=== PATIENT | male | born 1990 | race Caucasian/White ===

== ENCOUNTER 2019-08-20 07:39 | Emergency (ER) | payer BC ==
[~2019-08-20] VITALS: Ht 180.3 cm; Wt 98.9 kg
[2019-08-20] MEDS ORDERED: COUMADIN 5 MG TA5 M1 PO (07:45)
[2019-08-20 08:26] LABS: ABSOLUTE NEUTROPHILS 2.9 thou/uL (1.4-8.2); BASOPHILS 0.7 % (0.0-2.0); HEMATOCRIT 43.3 % (42.0-52.0); HEMOGLOBIN 14.6 gm/dL (14.0-18.0); LYMPHOCYTES 26.1 % (24.0-44.0); MCH 29.7 pg (26.0-34.0); MCHC 33.8 g/dL (28.0-37.0); MCV 87.9 fL (80.0-100.0); MONOCYTES 5.8 % (1.0-8.0); PLATELET COUNT 151 thou/uL (150-400); POLYS 63.4 % (36.0-66.0); RBC 4.92 mil/uL (4.50-6.00); RDW 14.6 % (10.5-14.5); WBC 4.6 thou/uL (4.0-11.0)
--- NOTE | 2019-08-20 08:33 | EKG ---
[facility] [place] [address] ELECTROCARDIOGRAM REPORT Name: CHULA ZABALA Room #: [facility]..#: [id number] Admission: 08/20/19 Attend Phys: Discharge: Date of : 89 Report #: [id number] THIS REPORT FOR: cc: FAM - Family physician unknown FAM - Family physician unknown Yeison Lozada MD [facility] ~ THIS REPORT FOR: //name// [facility] ED Test Date: 2019-08-20 Test Time: 08:13:18 Pat Name: CHULA AZBALA Department: Room: Gender: Benefits Specialist: : 1990 Requested By: José Cordero Order Number: [id number] MD: Yeison Lozada Measurements Intervals [place] Rate: 101 P: 64 NV: 172 QRS: 69 QRSD: 93 T: 31 QT: 345 QTc: 448 Interpretive Statements Sinus tachycardia Otherwise no significant abnormality No previous ECG available for comparison Electronically Signed On 08-20-2019 8:31:13 CDT by Yeison Lozada [email or web address] <ELECTRONICALLY SIGNED> By: Yeison Lozada MD, [facility] 08/20/1931 2 2 Yeison Lozada MD, FACC /EPI
[2019-08-20 08:39] LABS: URINE BILIRUBIN NEGATIVE (Negative); URINE BLOOD NEGATIVE (Negative); URINE CLARITY CLEAR; URINE COLOR YELLOW; URINE GLUCOSE-RANDOM* NEGATIVE (Negative); URINE KETONES NEGATIVE (Negative); URINE LEUKOCYTES-REFLEX NEGATIVE (Negative); URINE NITRITE-REFLEX NEGATIVE (Negative); URINE PROTEIN (DIPSTICK) NEGATIVE (Negative); URINE SPECIFIC GRAVITY 1.025 (1.005-1.035); URINE UROBILINOGEN 0.2 E.U./dl (0.2-1.0)
[2019-08-20 08:39] LABS: ANION GAP 5 mmol/L (7-16); BUN 16 mg/dL (7-18); CALCIUM 8.5 mg/dL (8.5-10.1); CHLORIDE 102 mmol/L (98-107); CO2 28 mmol/L (21-32); CREATININE 1.2 mg/dL (0.7-1.3); GLUCOSE 141 mg/dL (74-106); POTASSIUM 3.9 mmol/L (3.5-5.1); SODIUM 135 mmol/L (136-145)
[2019-08-20 08:41] LABS: PROTIME 10.6 Seconds (9.3-11.4)
[2019-08-20 08:47] LABS: AMP/METHAMP Negative (Negative); BARBITURATES Negative (Negative); BENZODIAZEPINES Negative (Negative); COCAINE Negative (Negative); METHADONE Negative (Negative); OPIATES Negative (Negative); PCP Negative (Negative)
[2019-08-20 08:49] LABS: ALBUMIN 4.3 g/dL (3.4-5.0); MAGNESIUM 1.7 mg/dL (1.8-2.4); SGOT 26 U/L (15-37); SGPT 37 U/L (30-65); TOTAL BILIRUBIN 0.7 mg/dL (<0.1-1.0); TOTAL PROTEIN 6.9 g/dL (6.4-8.2); TROPONIN-I 0.06 ng/mL (<0.06)
[2019-08-20 10:01] VITALS: BP 102/68
== END 2019-08-20 10:18 | disposition short-term general hospital (02) ==
LOC: ER 07:39
PROVIDERS: Emergency Medicine
DX: I63.9 Cerebral infarction, unspecified (principal); R79.1 Abnormal coagulation profile; G43.909 Migraine, unspecified, not intractable, without status migrainosus; Z79.01 Long term (current) use of anticoagulants; Z98.890 Other specified postprocedural states